=== PATIENT | female | born 1985 | race Caucasian/White ===

== ENCOUNTER → 2017-11-28 | Outpatient (CLI) | payer BC, OTHER ==
--- NOTE | ~2017-11-28 | 2DMMODE ---
[facility] [address] [place] [address] 2 D/M-MODE ECHOCARDIOGRAM Name: KEITHGLEN Room #: REG [facility]#: [id number] Admission: 11/28/17 Attend Phys: David Flores Discharge: Date of : 87 Date of Service: 11/28/17 [facility] Report #: [id number] THIS REPORT FOR: //name// APPROVED REPORT Study performed: 11/28/2017 15:02:07 EXAM: Comprehensive 2D, Doppler, and color-flow Echocardiogram Patient Location: Out-Patient Status: routine BSA: 1.56 HR: 92 bpm BP: 139/92 mmHg Rhythm: NSR/PACs Other Information Study Quality: Excellent Indications Palpitations, PACs. 2D Dimensions RVDd: 30.10 mm LVEF(%): 60.66 (>50%) IVSd: 8.64 (7-11mm) LVOT Diam: 18.82 (18-24mm) LVDd: 41.33 mm PWd: 7.87 (7-11mm) Ascending Ao: 26.03 (22-36mm) LVDs: 28.08 (25-40mm) Aortic Root: 27.57 mm Massey's LVEF: 60.66 % Volumes Left Atrial Volume (Systole) Single Plane 4CH: 26.80 mL Single Plane 2CH: 30.61 mL LA ESV Index: 20.00 mL/m2 Aortic Valve AoV Peak Patrick.: 1.62 m/s AO Peak Gr.: 10.50 mmHg LVOT Max P.22 mmHg LVOT Max V: 1.43 m/s HERMELINDA Vmax: 2.46 cm2 Mitral Valve E/A Ratio: 1.5 MV Decel. Time: 188.35 ms [facility] [place] [address] 2 D/M-MODE ECHOCARDIOGRAM Name: GLEN PARKER Room #: [facility]#: [id number] Admission: 11/28/17 Attend Phys: David Flores Discharge: Date of : 87 Date of Service: 11/28/17 1600 Report #: [id number] MV E Max Patrick.: 1.02 m/s MV A Patrick.: 0.69 m/s MV PHT: 54.62 ms IVRT: 69.20 ms Pulmonary Valve PV Peak Patrikc.: 1.12 m/s PV Peak Gr.: 5.03 mmHg Pulmonary Vein P Vein S: 0.73 m/s P Vein A: 0.49 m/s P Vein D: 0.59 m/s P Vein A Dur.: 129.2 msec P Vein S/D Ratio: 1.24 Tricuspid Valve TR Peak Patrick.: 2.27 m/s RAP Estimate: 5.00 mmHg TR Peak Gr.: 20.55 mmHg PA Pressure: 26.00 mmHg Left Ventricle The left ventricle is normal size. There is normal LV segmental wall motion. There is normal left ventricular wall thickness. Left ventricular systolic function is normal. LVEF is 60-65%. The left ventricular diastolic function is normal. Right Ventricle The right ventricle is normal size. The right ventricular systolic function is normal. Atria The left atrium size is normal. The right atrium size is normal. Aortic Valve The aortic valve is normal in structure. No aortic regurgitation is present. There is no aortic valvular stenosis. Mitral Valve The mitral valve is normal in structure. Trace mitral regurgitation. No evidence of mitral valve stenosis. Tricuspid Valve The tricuspid valve is normal in structure. Trace tricuspid regurgitation. Estimated PAP is 26mmHg. Pulmonic Valve The pulmonary valve is normal in structure. Mild pulmonic [facility] [address] [place] [address] 2 D/M-MODE ECHOCARDIOGRAM Name: GLEN PARKER Macie Room #: REG CL [facility]#: [id number] Admission: 11/28/17 Attend Phys: David Flores Discharge: Date of : 87 Date of Service: 11/28/17 1600 Report #: [id number] regurgitation. Great Vessels The aortic root is normal in size. The ascending aorta is normal in size. IVC is normal in size and collapses >50% with inspiration. Pericardium There is no pericardial effusion. <Conclusion> 1. Normal echocardiogram with Doppler EF 65% 2. Pulmonary artery pressure of 26mmHg 3. No pericardial effusion <ELECTRONICALLY SIGNED> By: Vicente Fountain MD, FACC 11/28/171599 99 99 Vicente Fountain MD, FACC /INF
== END ==
LOC: CV 08:39
DX: I37.1 Nonrheumatic pulmonary valve insufficiency (principal)